=== PATIENT | male | born 1965 | race Caucasian/White ===

== ENCOUNTER 2019-10-18 16:27 | Emergency (ER) | payer OTHER ==
[~2019-10-18] VITALS: Ht 180.3 cm; Wt 61.2 kg
--- NOTE | 2019-10-18 17:00 | NUR ---
[email or web address], medical screening exam in progress
[2019-10-18] MEDS ORDERED: LORAZEPAM 1 MG TABLET ONE (17:13)
[2019-10-18] MEDS ORDERED: OXYCODONE/APAP 5-325 MG TABLET ONE (17:14)
[2019-10-18] MEDS ORDERED: LORAZEPAM 0.5 MG TABLET PO ONE (17:15)
[2019-10-18] MEDS ORDERED: OXYCODONE/APAP 5-325 MG TABLET PO ONE (17:15)
--- NOTE | 2019-10-18 17:18 | NUR ---
Patient given written and verbal discharge instructions. Patient verbalized understanding and compliance of instructions. Patient is ambulatory with brisk steady gait. Patient refuses offer of [facility] placement@this time. Patient was given a list of available shelters in surrounding area.
== END 2019-10-18 17:19 | disposition home or self-care (01) ==
LOC: ER 16:30
DX: K43.9 Ventral hernia without obstruction or gangrene (principal); Z59.0 Homelessness; J43.9 Emphysema, unspecified
CPT/HCPCS: A4663

== ENCOUNTER 2019-10-19 15:19 | Emergency (ER) | payer OTHER ==
[~2019-10-19] VITALS: Ht 180.3 cm; Wt 61.2 kg
--- NOTE | 2019-10-19 15:47 | NUR ---
PT ELOPED Addendum: 10/19/19 at 1548 by [facility] PT YELLING AND CURSING WHILE WALKING OUT OF ER.
== END 2019-10-19 15:47 | disposition home or self-care (01) ==
LOC: ER 15:20
DX: Z76.0 Encounter for issue of repeat prescription (principal); J43.9 Emphysema, unspecified; K43.9 Ventral hernia without obstruction or gangrene
CPT/HCPCS: A4663

== ENCOUNTER 2019-10-25 04:53 | Emergency (ER) | payer SELFPAY | END 2019-10-25 05:06 | disposition left against medical advice (07) | LOC: ER 04:55 | DX: Z75.3 Unavailability and inaccessibility of health-care facilities (principal) ==

== ENCOUNTER 2019-10-28 07:32 | Emergency (ER) | payer OTHER ==
[~2019-10-28] VITALS: Ht 180.3 cm; Wt 61.2 kg
--- NOTE | 2019-10-28 08:08 | NUR ---
PATIENT WAS SEEN BY . MED GIVEN ORDERED. PATIENT STATES HE DOES NOT DRIVE DC, RX AND FOLLOW UP INSTRUCTIONS GIVEN AND EXPLAINED TO PATIENT WHO STATES HE UNDERSTANDS ALL INSTRUCTIONS INCLUDING NARCOTIC PRECAUTIONS.
[2019-10-28] MEDS ORDERED: OXYCODONE/APAP 5-325 MG TABLET ONE (08:09)
[2019-10-28] MEDS ORDERED: OXYCODONE/APAP 5-325 MG TABLET PO ONE (08:15)
== END 2019-10-28 08:11 | disposition home or self-care (01) ==
LOC: ER 07:34
DX: K43.9 Ventral hernia without obstruction or gangrene (principal); K40.90 Unilateral inguinal hernia, without obstruction or gangrene, not specified as recurrent; Z76.0 Encounter for issue of repeat prescription
CPT/HCPCS: A4663

== ENCOUNTER 2019-11-04 10:35 | Emergency (ER) | payer OTHER ==
[~2019-11-04] VITALS: Ht 167.6 cm; Wt 61.7 kg
[2019-11-04] MEDS ORDERED: OXYCODONE/APAP 5-325 MG TABLET ONE (11:10)
--- NOTE | 2019-11-04 11:10 | NUR ---
Patient was given written and verbal discharge instructions. Patient verbalized understanding and compliance of instructions. Patient is ambulatory with brisk steady gait. Patient refuses offer of intermediate placement@this time. Patient was given a list of available shelters in surrounding area.
[2019-11-04] MEDS ORDERED: OXYCODONE/APAP 5-325 MG TABLET PO ONE (11:15)
== END 2019-11-04 11:16 | disposition home or self-care (01) ==
LOC: ER 10:35
DX: Z76.0 Encounter for issue of repeat prescription (principal); K40.90 Unilateral inguinal hernia, without obstruction or gangrene, not specified as recurrent; K42.9 Umbilical hernia without obstruction or gangrene; Z59.0 Homelessness; J45.909 Unspecified asthma, uncomplicated
CPT/HCPCS: A4663

== ENCOUNTER 2019-11-11 05:50 | Emergency (ER) | payer OTHER ==
[~2019-11-11] VITALS: Ht 177.8 cm; Wt 61.2 kg
--- NOTE | 2019-11-11 05:59 | NUR ---
Dr. Buckley at bedside for MSE
--- NOTE | 2019-11-11 06:01 | NUR ---
Pt D/C from ER refused to sign after care instructions refused to sign homeless waiver form
[2019-11-11 06:05] VITALS: BP 137/65
== END 2019-11-11 06:01 | disposition home or self-care (01) ==
LOC: ER 05:52
DX: Z76.0 Encounter for issue of repeat prescription (principal); F17.210 Nicotine dependence, cigarettes, uncomplicated; J45.909 Unspecified asthma, uncomplicated; G89.29 Other chronic pain; R10.9 Unspecified abdominal pain; Z59.0 Homelessness
CPT/HCPCS: A4663

== ENCOUNTER 2019-11-15 14:53 | Emergency (ER) | payer OTHER ==
[~2019-11-15] VITALS: Ht 177.8 cm; Wt 61.2 kg
--- NOTE | 2019-11-15 15:40 | NUR ---
PT IS IN ROOM #1A. DR LENTZ EVALUATED THE PT.
[2019-11-15] MEDS ORDERED: OXYCODONE/APAP 5-325 MG TABLET PO ONE (15:45)
[2019-11-15] MEDS ORDERED: OXYCODONE/APAP 5-325 MG TABLET ONE (15:54)
--- NOTE | 2019-11-15 16:10 | NUR ---
PT WAS D/C'd TO HOME. D/C INSTRUCTIONS GIVEN TO THE PT.
[2019-11-15 16:12] VITALS: BP 135/81
== END 2019-11-15 16:13 | disposition home or self-care (01) ==
LOC: ER 14:59
DX: Z76.0 Encounter for issue of repeat prescription (principal); G89.29 Other chronic pain; R10.9 Unspecified abdominal pain; F31.9 Bipolar disorder, unspecified
CPT/HCPCS: A4663

== ENCOUNTER 2019-11-17 15:22 | Emergency (ER) | payer OTHER ==
[~2019-11-17] VITALS: Ht 177.8 cm; Wt 61.2 kg
--- NOTE | 2019-11-17 15:40 | NUR ---
DR Ribera at the bedside for MSE.
[2019-11-17 15:46] VITALS: BP 120/73
--- NOTE | 2019-11-17 15:47 | NUR ---
Pt being rude to staff as leaving the ER, stating I hate it here and you guys not giving me my Perccocet.
--- NOTE | 2019-11-17 15:47 | NUR ---
Patient discharged to home in stable condition. Written and verbal after care instructions given. Patient verbalizes understanding of instructions. Stressed follow up or return to ER for worsening s/s.
== END 2019-11-17 15:50 | disposition home or self-care (01) ==
LOC: ER 15:23
DX: Z76.0 Encounter for issue of repeat prescription (principal); F11.20 Opioid dependence, uncomplicated; G89.29 Other chronic pain
CPT/HCPCS: A4663

== ENCOUNTER 2019-11-19 16:18 | Emergency (ER) | payer OTHER ==
[~2019-11-19] VITALS: Ht 180.3 cm; Wt 63.5 kg
--- NOTE | 2019-11-19 16:34 | NUR ---
Dr Rivero at the bedside for MSE.
[2019-11-19] MEDS ORDERED: LORAZEPAM 1 MG TABLET ONE (16:43)
[2019-11-19] MEDS ORDERED: OXYCODONE/APAP 5-325 MG TABLET ONE (16:44)
--- NOTE | 2019-11-19 16:44 | NUR ---
Patient discharged to home in stable condition. Written and verbal after care instructions given. Patient verbalizes understanding of instructions. Stressed follow up or return to ER for worsening s/s. Pt left ER carrying multiple heavy back packs w/ steady gait.
[2019-11-19] MEDS ORDERED: LORAZEPAM 0.5 MG TABLET PO ONE (16:45)
[2019-11-19] MEDS ORDERED: OXYCODONE/APAP 5-325 MG TABLET PO ONE (16:45)
[2019-11-19 16:46] VITALS: BP 135/78
== END 2019-11-19 16:46 | disposition home or self-care (01) ==
LOC: ER 16:20
DX: Z76.0 Encounter for issue of repeat prescription (principal); G89.29 Other chronic pain; K43.9 Ventral hernia without obstruction or gangrene
CPT/HCPCS: A4663

== ENCOUNTER 2019-12-08 07:35 | Emergency (ER) | payer OTHER ==
[~2019-12-08] VITALS: Ht 180.3 cm; Wt 61.2 kg
== END 2019-12-08 07:55 | disposition home or self-care (01) ==
LOC: ER 07:35
DX: Z76.0 Encounter for issue of repeat prescription (principal); F11.20 Opioid dependence, uncomplicated; G89.29 Other chronic pain
CPT/HCPCS: A4663

== ENCOUNTER 2020-02-08 14:15 | Emergency (ER) | payer OTHER ==
[~2020-02-08] VITALS: Ht 180.3 cm; Wt 63.5 kg
--- NOTE | 2020-02-08 14:28 | NUR ---
Dr Rivero at the bedside for MSE.
[2020-02-08 14:44] VITALS: BP 137/88
== END 2020-02-08 14:46 | disposition home or self-care (01) ==
LOC: ER 14:15
DX: Z76.0 Encounter for issue of repeat prescription (principal); G89.29 Other chronic pain; K42.9 Umbilical hernia without obstruction or gangrene; M79.642 Pain in left hand; S69.92XS Unspecified injury of left wrist, hand and finger(s), sequela; X58.XXXS Exposure to other specified factors, sequela
CPT/HCPCS: A4663

== ENCOUNTER 2020-04-18 23:45 | Emergency (ER) | payer OTHER ==
[~2020-04-18] VITALS: Ht 180.3 cm; Wt 54.4 kg
--- NOTE | 2020-04-19 02:00 | NUR ---
Patient left without being seen by ERMD.
== END 2020-04-19 02:35 | disposition left against medical advice (07) ==
LOC: ER 23:55
DX: Z75.3 Unavailability and inaccessibility of health-care facilities (principal)